=== PATIENT | female | born 1995 | race Caucasian/White ===

== ENCOUNTER → 2017-06-23 | Outpatient (REF) | payer OTHER | LOC: M LAB REF 21:28 | PROVIDERS: ATTEND Physician Assistant Medical | DX: R50.9 Fever, unspecified (principal); R52 Pain, unspecified ==

== ENCOUNTER → 2019-01-26 | Outpatient (REF) | payer OTHER | LOC: M LAB REF 10:55 | PROVIDERS: ATTEND Physician Assistant | DX: N39.0 Urinary tract infection, site not specified (principal) ==

== ENCOUNTER 2021-02-19 12:00 | Emergency (ER) | payer MEDICAID, OTHER ==
[~2021-02-19] VITALS: Ht 160 cm; Wt 86.4 kg
[2021-02-19] MEDS ORDERED: LEXA1TAB (12:11)
[2021-02-19 16:48] VITALS: BP 126/86
== END 2021-02-19 16:51 | disposition home or self-care (01) ==
LOC: M ED 12:00
DX: S61.031A Puncture wound without foreign body of right thumb without damage to nail, initial encounter (principal); Z77.21 Contact with and (suspected) exposure to potentially hazardous body fluids; W26.8XXA Contact with other sharp object(s), not elsewhere classified, initial encounter; Y92.9 Unspecified place or not applicable; Y93.9 Activity, unspecified; Y99.0 Civilian activity done for income or pay; Z79.899 Other long term (current) drug therapy

== ENCOUNTER → 2022-04-24 | Outpatient (REF) | payer BC, OTHER ==
[~2022-04-24] MED LIST: LEXA1TAB
== END ==
LOC: M WUC 09:56
PROVIDERS: ATTEND Physician Assistant
DX: M54.50 Low back pain, unspecified (principal)

== ENCOUNTER 2023-01-17 19:24 | Emergency (ER) | payer BC, OTHER ==
[~2023-01-17] VITALS: Ht 160 cm; Wt 81.8 kg
[2023-01-17 19:24] VITALS: TEMP 97.6
[2023-01-17 20:05] LABS: BASO # 0.1 10^3/uL (0.0-0.2); BASO % 0.8 % (0.0-1.0); EOS # 0.2 10^3/uL (0.0-0.5); EOS % 1.4 % (0.0-3.0); HEMATOCRIT 36.5 % (36.0-47.0); HEMOGLOBIN 12.3 g/dl (12.0-15.5); LYMPH # 2.7 10^3/uL (1.5-5.0); LYMPH % 24.6 % (24.0-44.0); MEAN CORPUSCULAR HEMOGLOBIN 31.2 pg (27.0-33.0); MEAN CORPUSCULAR HGB CONC 33.7 g/dl (32.0-36.5); MEAN CORPUSCULAR VOLUME 92.6 fl (80.0-96.0); MONO # 0.9 10^3/uL (0.0-0.8); MONO % 8.3 % (2.0-8.0); NEUTROPHILS # 7.2 10^3/uL (1.5-8.5); NEUTROPHILS % 64.5 % (36.0-66.0); PLATELET COUNT, AUTOMATED 304 10^3/uL (150-450); RED BLOOD COUNT 3.94 10^6/uL (4.00-5.40); WHITE BLOOD COUNT 11.2 10^3/uL (4.0-10.0)
[2023-01-17 20:14] LABS: INR 0.85; PROTHROMBIN TIME 11.8 SECONDS (12.5-14.5)
[2023-01-17 20:26] LABS: CK-MB VALUE MASS < 1.0 NG/ML (<3.6); LIPASE 34 U/L (12-53)
[2023-01-17 20:26] LABS: APPEARANCE, URINE CLEAR (CLEAR); BACTERIA, URINE AUTO 1+ (NEGATIVE); BILIRUBIN, URINE AUTO NEGATIVE (NEGATIVE); BLOOD, URINE BLOOD 2+ (NEGATIVE); COLOR, URINE STRAW (YELLOW); GLUCOSE, URINE (UA) AUTO NEGATIVE (NEGATIVE); KETONE, URINE AUTO NEGATIVE (NEGATIVE); LEUKOCYTE ESTERASE, URINE AUTO NEGATIVE (NEGATIVE); NITRITE, URINE AUTO NEGATIVE (NEGATIVE); PROTEIN, URINE AUTO NEGATIVE (NEGATIVE); RBC, URINE AUTO 4 /HPF (0-3); SPECIFIC GRAVITY URINE AUTO 1.005 (1.002-1.035); SQUAMOUS EPITHELIAL CELL UR AU 1 /HPF (0-6); UROBILINOGEN, URINE AUTO 0.2 mg/dL (0.0-2.0); WBC, URINE AUTO 1 /HPF (0-3)
[2023-01-17 20:28] LABS: ALBUMIN 3.9 G/DL (3.2-5.2); ALKALINE PHOSPHATASE 99 U/L (46-116); ALT/SGPT 41 U/L (7.0-40); AST/SGOT 25 U/L (<34); BILIRUBIN,DIRECT < 0.1 MG/DL (<0.4); BILIRUBIN,TOTAL 0.2 MG/DL (0.3-1.2); BLOOD UREA NITROGEN 12 MG/DL (9-23); CALCIUM LEVEL 8.4 MG/DL (8.5-10.1); CARBON DIOXIDE LEVEL 25 MMOL/L (20-31); CHLORIDE LEVEL 106 MMOL/L (98-107); CPK CREATINE PHOSPHOKINASE 68 U/L (34-145); GLOMERULAR FILTRATION RATE > 60.0 (>60); GLUCOSE, FASTING 107 MG/DL (60-100); MB/CK RELATIVE INDEX 1.47 (< OR =4); POTASSIUM SERUM 3.3 MMOL/L (3.5-5.1); SODIUM LEVEL 142 MMOL/L (136-145); TOTAL PROTEIN 6.8 G/DL (5.7-8.2)
[2023-01-17 22:27] LABS: CPK CREATINE PHOSPHOKINASE 66 U/L (34-145)
[2023-01-17 22:31] LABS: CK-MB VALUE MASS < 1.0 NG/ML (<3.6); MB/CK RELATIVE INDEX 1.51 (< OR =4)
[2023-01-17 22:56] LABS: D-DIMER QUANT 453.26 ng/ml (<500)
[2023-01-17 23:23] VITALS: BP 126/65; O2SAT 98
== END 2023-01-17 23:44 | disposition home or self-care (01) ==
LOC: M ED 19:24
DX: R07.9 Chest pain, unspecified (principal)

== ENCOUNTER → 2023-10-27 | Outpatient (CLI) | payer BC ==
[~2023-10-27] MED LIST changes: +ISOVUE-370 76% 100ML VIAL As Ordered ONE; +ISOVUE-M 300 61% 15ML VIAL As Ordered ONE
== END ==
LOC: M RADPRO 12:07
PROVIDERS: ATTEND Obstetrics & Gynecology
DX: N97.9 Female infertility, unspecified (principal)
CPT/HCPCS: 58340; 74740; Q9967